=== PATIENT | female | born 1975 | race Caucasian/White ===

== ENCOUNTER → 2020-01-26 11:27 | Outpatient (CLI) | payer BC ==
[2011-12-23 05:59] VITALS: BMI 24.5
[2020-01-26 12:08] LABS: BASOPHILS 0.8 % (0-2); EOSINOPHILS 3.5 % (0-7); HEMOGLOBIN 14.6 g/dL (12-16); IMMATURE GRANULOCYTES 0.2 % (0-5); LYMPHOCYTES 25.7 % (15-50); MCH 31.9 pg (26.0-34.0); MCHC 33.2 g/dL (31.0-37.0); MCV 96.3 fL (80.0-100.0); MEAN PLATELET VOLUME 10.7 fL (7.4-10.4); MONOCYTES 4.9 % (2-11); NEUTROPHILS 64.9 % (40-80); PLATELET COUNT 151 10x3/uL (130-400); RBC 4.57 10x6/uL (4.00-5.40); RDW 11.6 % (11.5-14.5); WBC 6.5 10x3/uL (4.8-10.8)
[2020-01-26 12:29] LABS: ALBUMIN 4.2 g/dL (3.4-5.0); BILIRUBIN - TOTAL 0.41 mg/dL (0.2-1.3); CALCIUM 9.4 mg/dL (8.5-10.1); CARBON DIOXIDE 30.3 mmol/L (21.0-32.0); CREATININE - SERUM 0.9 mg/dL (0.6-1.3); POTASSIUM - SERUM 4.3 mmol/L (3.5-5.1); PROTEIN - SERUM 7.2 g/dL (6.4-8.2); T4 THYROXIN - FREE 1.04 ng/dL (0.76-1.46); THYROID STIMULATING HORMONE 0.55 uIU/mL (0.36-3.74)
== END | disposition home or self-care (01) ==
LOC: D.LAB 11:27
PROVIDERS: ATTEND Nurse Practitioner Acute Care
DX: K21.0 Gastro-esophageal reflux disease with esophagitis (principal); K92.1 Melena; R10.13 Epigastric pain; K59.09 Other constipation; R07.9 Chest pain, unspecified; Z87.11 Personal history of peptic ulcer disease